=== PATIENT | male | born 1995 | race Caucasian/White ===

== ENCOUNTER 2016-03-02 05:04 | Day surgery (SDC) | payer BC ==
[2016-03-01 14:51] VITALS: BMI 24.4
[2016-03-02] MEDS ORDERED: PROPOFOL 20 ML ONE ×3 (09:53)
[2016-03-02] MEDS ORDERED: IBUPROFEN 800 MG/8 ML IJ IVPB PRN (09:54)
[2016-03-02] MEDS ORDERED: ONDANSETRON 4 MG/2 ML VIAL IVPUSH PRN (09:55)
[2016-03-02] MEDS ORDERED: LACTATED RINGERS SOLUTION 1,000 ML IV SCH (10:00)
[2016-03-02] MEDS ORDERED: MIDAZOLAM HCL 2 MG/2 ML SINGLE DOSE VIAL ONE (10:07)
[2016-03-02 10:42] VITALS: TEMP 98.5
[2016-03-02 10:51] LABS: ALBUMIN 4.5 g/dl (3.4-5.0); ANION GAP 5 (8-16); CALCIUM 9.2 mg/dL (8.5-10.1); CO2 31 mmol/L (21-32); CREATININE 0.9 mg/dL (0.7-1.3); GLUCOSE,RANDOM 87 mg/dL (74-106); SGOT/AST 24 U/L (15-37); SGPT/ALT 31 U/L (12-78)
[2016-03-02 10:53] LABS: ALK PHOS 82 U/L (45-117); BILIRUBIN,TOTAL 0.7 mg/dL (0.2-1.0); TOT PROT 7.9 g/dl (6.4-8.2)
[2016-03-02 10:58] LABS: BASOPHIL 0.4 % (0-2.0); EOSINOPHIL 1.1 % (0-4.5); MCH 27.8 pg (25.7-33.7); MCHC 32.5 g/dl (32.0-35.9); MEAN CELL VOLUME 85.6 fl (80-96); MEAN PLT VOLUME 11.7 fl (7.5-11.1); NEUTROPHILS 61.7 % (42.8-82.8); PLATELET COUNT 142 K/MM3 (134-434); RDW 14.5 % (11.9-15.9)
[2016-03-02 11:31] VITALS: BP 132/60; PULSE 62
--- NOTE | 2016-03-05 11:19 | PATH ---
Surgical Pathology Report Patient Name: APPLE OROSCO [facility]. Rec. #: [id number] /Age/Gender: 1995 (Age: 20) / M Account: [id number] Location: [facility]-ENDOSCOPY Taken: 03/02/2016 Received: 03/02/2016 Reported: 03/05/2016 Physicians: Wilton Cortes M.D. Specimen(s) Received A: BX 2ND PORTION DUODENUM & BULB B: BX ANTRUM C: BX DISTAL ESOPHAGUS D: BX MID ESOPHAGUS Clinical History Abdominal pain, nausea/vomiting Final Diagnosis A. DUODENUM, SECOND PORTION AND BULB, BIOPSY: DUODENAL MUCOSA WITH NO PATHOLOGIC CHANGES. NO HISTOLOGIC EVIDENCE OF GLUTEN SENSITIVE ENTEROPATHY (CELIAC SPRUE) IDENTIFIED. B. STOMACH, ANTRUM, BIOPSY: MILD CHRONIC GASTRITIS. IMMUNOSTAIN FOR H. PYLORI IS NEGATIVE. C. DISTAL ESOPHAGUS, BIOPSY: SQUAMOUS EPITHELIUM WITH PAPILLOMATOSIS SUGGESTIVE OF REFLUX ESOPHAGITIS. NO INTESTINAL METAPLASIA IDENTIFIED (NO MACK'S IDENTIFIED). D. MID ESOPHAGUS, BIOPSY: SQUAMOUS EPITHELIUM WITH NO PATHOLOGIC CHANGES. NO EOSINOPHILIC ESOPHAGITIS IDENTIFIED. Electronically Signed Pepe Patel M.D. Gross Description A. Received in formalin, labeled "biopsy second portion of duodenum/bulb" are 7 cortez, irregular portions of soft tissue ranging from 0.1-0.5 cm. in greatest dimension. The specimens are submitted in toto in one cassette. B. Received in formalin, labeled "biopsy antrum" are 2 cortez, irregular portions of soft tissue measuring 0.2 and 0.4 cm. in greatest dimension. The specimens are submitted in toto in one cassette. C. Received in formalin, labeled "biopsy distal esophagus" are 3 cortez, irregular portions of soft tissue ranging from 0.1-0.2 cm. in greatest dimension. The specimens are submitted in toto in one cassette. D. Received in formalin, labeled "biopsy midesophagus" is a cortez, irregular portion of soft tissue measuring 0.3 cm. in greatest dimension. The specimen is submitted in toto in one cassette. 03/02/2016 saudi03/02/2016
[2016-03-05 16:53] LABS: C-ANCA <1:20 titer (Neg:<1:20); MYELOPEROXIDASE ANTIBODY <9.0 U/mL (0.0-9.0); P-ANCA <1:20 titer (Neg:<1:20); PROTEINASE-3 ANTIBODY <3.5 U/mL (0.0-3.5)
== END 2016-03-02 11:39 | disposition home or self-care (01) ==
LOC: JASU-ENDO 05:04
PROVIDERS: ATTEND Internal Medicine Gastroenterology
PROC: 0DB68ZX Excision of Stomach, Via Natural or Artificial Opening Endoscopic, Diagnostic (ICD-10-PCS; 2016-03-02)
PROC: 0DB58ZX Excision of Esophagus, Via Natural or Artificial Opening Endoscopic, Diagnostic (ICD-10-PCS; 2016-03-02)
PROC: 0DB98ZX Excision of Duodenum, Via Natural or Artificial Opening Endoscopic, Diagnostic (ICD-10-PCS; principal; 2016-03-02 09:45)
DX: R10.13 Epigastric pain (principal)
CPT/HCPCS: 36415; 80053; 83516; 83520; 85025; 86140; 86256; 86671; 88305-TC; 88342-TC

== ENCOUNTER 2016-04-04 09:07 | Day surgery (SDC) | payer BC ==
[2016-04-03 12:04] VITALS: BMI 26.8
[2016-04-04] MEDS ORDERED: PROPOFOL 20 ML ONE (10:25)
[2016-04-04 11:00] VITALS: TEMP 97.2
[2016-04-04 11:58] VITALS: BP 121/54; PULSE 55
--- NOTE | 2016-04-05 12:36 | PATH ---
Surgical Pathology Report Patient Name: APPLE OROSCO [facility]. Rec. #: [id number] /Age/Gender: 1995 (Age: 20) / M Account: [id number] Location: [facility]-ENDOSCOPY Taken: 04/04/2016 Received: 04/04/2016 Reported: 04/05/2016 Physicians: Wilton Cortes M.D. Specimen(s) Received A: BX ILEUM B: BX CECUM Clinical History Chronic diarrhea Redundant colon Final Diagnosis A. ILEUM, BIOPSY: SMALL INTESTINAL MUCOSA WITH FOLLICULAR HYPERPLASIA OF MUCOSA ASSOCIATED LYMPHOID TISSUE. NO ACTIVE INFLAMMATION, GRANULOMATA, ARCHITECTURAL DISTORTION, OR DYSPLASIA IDENTIFIED. B. COLON, CECUM, BIOPSY: COLONIC MUCOSA WITH NO PATHOLOGIC CHANGES. NO ACTIVE COLITIS, ARCHITECTURAL DISTORTION, GRANULOMATA, OR DYSPLASIA IDENTIFIED. NO MICROSCOPIC COLITIS IDENTIFIED (NO LYMPHOCYTIC OR COLLAGENOUS COLITIS IDENTIFIED). Comment: The findings may indicate some form of antigenic stimulation to the GI tract. Electronically Signed Pepe Patel M.D. Gross Description A. Received in formalin, labeled "biopsy ileum" are 2 cortez, irregular portions of soft tissue averaging 0.3 cm. in greatest dimension. The specimens are submitted in toto in one cassette. B. Received in formalin, labeled "biopsy cecum" are 2 cortez, irregular portions of soft tissue measuring 0.8 and 0.9 cm. in greatest dimension. The specimens are submitted in toto in one cassette. 04/04/2016 saudi04/04/2016
== END 2016-04-04 11:58 | disposition home or self-care (01) ==
LOC: JASU-ENDO 09:07
PROVIDERS: ATTEND Internal Medicine Gastroenterology
PROC: 0DBH8ZX Excision of Cecum, Via Natural or Artificial Opening Endoscopic, Diagnostic (ICD-10-PCS; 2016-04-04)
PROC: 0DBB8ZX Excision of Ileum, Via Natural or Artificial Opening Endoscopic, Diagnostic (ICD-10-PCS; principal; 2016-04-04 10:30)
DX: K58.9 Irritable bowel syndrome, unspecified (principal); K63.89 Other specified diseases of intestine
CPT/HCPCS: 87045; 87046; 87177; 87207; 87209; 87328; 87329; 88305-TC

== ENCOUNTER 2017-04-06 04:11 | Emergency (ER) | payer BC ==
[2017-04-06 04:19] VITALS: BP 126/70; PULSE 54; TEMP 97.4; BMI 29.4
--- NOTE | 2017-04-06 04:20 | PDOC ---
History of Present Illness - General Chief Complaint: Pain, Acute Stated Complaint: RT HAND INJURY Time Seen by Provider: 04/06/17 04:17 - History of Present Illness Initial Comments: 04/06/17 04:35 This otherwise healthy, right-handed man presents with injury to his right hand. Patient was playing dodgeball at approximately 8 PM last evening when he accidentally struck the back of the another player with his right fist. Patient was throwing the ball as he did this and states that he put his "full weight" into the throw. He had immediate pain but continued to play in the game. Afterwards, pain and swelling continued. He presents now because of persistent pain, despite elevation and ibuprofen. No previous history of injury of the right upper extremity. Past History - Past Medical History Allergies/Adverse Reactions: Allergies Allergy/AdvReac Type Severity Reaction Status Date / Time tree nut [Tree Nut] Allergy Unknown Verified 01/23/14 10:52 No Known Drug Allergies Allergy Verified 04/06/17 04:12 Home Medications: Ambulatory Orders NK [No Known Home Medication] 04/06/17 Anemia: No Asthma: No Cancer: No Cardiac Disorders: No CVA: No COPD: No CHF: No Dementia: No Diabetes: No GI Disorders: No Disorders: No HTN: No Hypercholesterolemia: No Liver Disease: No Seizures: No Thyroid Disease: No - Surgical History Abdominal Surgery: No Appendectomy: No Cardiac Surgery: No Cholecystectomy: No Lung Surgery: No Neurologic Surgery: No Orthopedic Surgery: No - Immunization History Immunization Up to Date: Yes - Suicide/Smoking/Psychosocial Hx Smoking History: Never smoked Have you smoked in the past 12 months: No Hx Alcohol Use: Yes (SOCIAL) Drug/Substance Use Hx: Yes (social) Substance Use Type: Marijuana Review of Systems - Review of Systems Able to Perform ROS?: Yes Comments:: 12 point review of systems is negative except for what is noted in the history of present illness *Physical Exam - Vital Signs Last Vital Signs Temp Pulse Resp BP Pulse Ox 97.4 F L 54 L 16 126/70 100 04/06/17 04:13 04/06/17 04:13 04/06/17 04:13 04/06/17 04:13 04/06/17 04:13 - Physical Exam Comments: GENERAL: Young adult male, alert and oriented 3, in moderate distress secondary to right hand pain EXTREMITIES: Right hand-moderate edema/marked tenderness mid dorsal surface; no deformity or ecchymosis evident . No finger edema/tenderness/ deformity/malrotation evident; flexion/extension limited secondary to pain No right wrist, forearm or elbow edema/deformity or tenderness Remainder of the extremity exam is normal NEUROLOGICAL: Cranial nerves II through XII grossly intact. Normal speech. No focal neurological deficits. SKIN: Warm, Dry, normal turgor, no rashes or lesions noted. Progress Note - Progress Note Progress Note: Right hand x-ray performed. Preliminary interpretation by me reveals no evidence of fracture or dislocation Clinical presentation most consistent with sprain/contusion of right hand. Rob wrap applied to distal forearm/wrist/hand. Patient will elevate hand as much as possible and apply ice to the dorsum of the right hand. Follow-up will be with Dr. Tatum on Saturday, April 08. Patient will take ibuprofen/naproxen/acetaminophen as needed for pain. *DC/Admit/Observation/Transfer Diagnosis at time of Disposition: Sprain of hand, right Qualifiers: Encounter type: initial encounter Qualified Code(s): S63.91XA - Sprain of unspecified part of right wrist and hand, initial encounter - Discharge Dispostion Disposition: HOME Condition at time of disposition: Stable - Referrals - Patient Instructions Printed Discharge Instructions: Sprain Additional Instructions: Elevate right hand (heart level or above) as much as possible for the next 2 days Ice to right hand the next 1-2 days Ibuprofen/naproxen as needed for pain Rob wrap overnight tonight and then during the day only until seen by Dr. Kuo Follow-up with Dr. Kuo within the next 3-4 days - Post Discharge Activity
== END 2017-04-06 04:50 | disposition home or self-care (01) ==
LOC: FER 04:11
DX: S63.91XA Sprain of unspecified part of right wrist and hand, initial encounter (principal); W51.XXXA Accidental striking against or bumped into by another person, initial encounter; Y93.64 Activity, baseball; Y92.320 Baseball field as the place of occurrence of the external cause
CPT/HCPCS: 73130-TC-RT-FY; 99282-25

== ENCOUNTER 2020-01-11 15:32 | Emergency (ER) | payer BC | END 2020-01-11 15:52 | disposition home or self-care (01) | LOC: JVIRT 15:32 | DX: Z11.59 Encounter for screening for other viral diseases (principal) | CPT/HCPCS: C9803; Q3014-GT; U0003 ==

== ENCOUNTER 2020-03-15 10:29 | Emergency (ER) | payer BC | END 2020-03-15 11:56 | disposition home or self-care (01) | LOC: JVIRT 10:29 | DX: U07.1 COVID-19 (principal) | CPT/HCPCS: C9803; G2012-GT; U0003 ==